=== PATIENT | male | born 1975 | race Caucasian/White ===

== ENCOUNTER 2017-03-25 01:15 | Emergency (ER) | payer OTHER ==
--- NOTE | 2017-03-25 02:21 | ED NURSING NOTES ---
Clinical Report - Nurses [facility] [address] [place] [address] 03/25/2017 1:16 [id number] Triage time 01:Mar 25 2017. Acuity: LEVEL 3. Chief Complaint: INJURY TO LEFT ANKLE. INJURY TO THE LEFT LEG. 01:26 03/25/17. SEPSIS SCREEN: Sepsis Screen. Negative (no infection suspected/documented). --01: Kaylan Gonzalez R.N. 01:19 03/25/17. BP: 164/100 (regular adult cuff) taken on the left arm, while sitting. HR: 102. RR: 22. O2 saturation: 98% on room air. Temp: 97.8 F (oral). Pain level now: 0/10. --01:26 Kaylan Gonzalez R.N. MARYBETH COMA SCORE: Grundy Coma Scale: 15- eyes open spontaneously (4); best verbal response- oriented x 4 (5); best motor response- obeys commands (6). --01:26 Kaylan Gonzalez R.N. Weight: 97.5 kg stated. Height/Length: 71 inches Per Patient. BMI: 30. --01:25 Kaylan Gonzalez R.N. Medications None. --01:22 Kaylan Gonzalez R.N. Testosterone Cypionate Intramuscular (Solution 100 mg/mL), weekly. --01:26 Kaylan Gonzalez R.N. Allergies Sodium Penathol. --01:22 Kaylan Gonzalez R.N. History Historian: patient. This occurred (one ago at work). Occurred at work. Mechanism of injury: (stepped on rebar at work week ago, since then has gotten worse). He has had trouble walking. Treatment FOOT CASTER: (clean with alcohol, neosporin). PAST MEDICAL HX: Tetanus status: unknown. SOCIAL HX: Current every day heavy tobacco smoker (cigarette)- less than 1 pack per day. History of weekly drug use: methamphetamines. Recently used drugs days ago. (7). No alcohol use. No infectious disease exposure. ABUSE ASSESSMENT: No report of abuse. SELF HARM ASSESSMENT: A self harm assessment was performed. The patient answered "no" to the question "Do you have thoughts of harming or killing yourself?" and "Have you recently had thoughts about harming or killing others?". --01:26 Kaylan Gonzalez R.N. Occurred (Patient corrected prior triage information where this happened at work and corrected it stating he stepped on rebar at home). --02:15 Kaylan Gonzalez R.N. PROBLEMS: Liver issues. Hepatitis C carrier. Viral Disease. URI. Corneal Abrasion. Eye Injury. --01:23 Kaylan Gonzalez R.N. ADDITIONAL SURGERIES: no known surgeries. Interventions ID band on patient. To treatment room. --01:26 Kaylan Gonzalez R.N. PHYSICAL ASSESSMENT 01:30 03/25/17. Ambulatory to room. Patient gowned. GENERAL / NEURO / PSYCH: Oriented X 4. Alert. Appears in no acute distress. EXTREMITIES: Capillary refill is less than 2 seconds in the extremities. Extremity pulses are within normal limits. Extremities exhibit normal ROM. Pain with weight bearing. Limping gait. Neuro-vascular status intact to the extremity. Normal gait. Left leg: tenderness, swelling, erythema, large abrasion, subcutaneous laceration and multiple puncture wounds (superior wound on lower castle 3cm x 4cm wound with perulent dressing, inferior wound 2cm x 1 cm). SKIN: Skin is warm and dry. He has an abrasion. --01:30 Kaylan Gonzalez R.N. NURSING PROGRESS NOTES late entry - 01:20 03/25/17. ( Xray finished). --01:55 Kaylan Gonzalez R.N. 01:30 03/25/17. The plan of care for this patient has been created. Extremity elevated. Patient gowned. Reassurance given. Two patient identifiers checked. Call light placed in reach. Side rails up x 1. Bed placed in lowest position. Brakes of bed on. Patient ready for evaluation- chart flagged and ED physician notified. --01:30 Kaylan Gonzalez R.N. 01:33 03/25/2017 Site #1 started via IV in the left forearm with an 20g angiocath, with aseptic technique and good blood return; one attempt. Blood drawn: rainbow set. Labeled in the presence of the patient and sent to the lab. Saline lock flushed with 10 mL saline. --01:48 Kaylan Gonzalez R.N. 01:49 03/25/2017 Started bag #1 1000 mL IV Fluids IV NS (Saline); bolus of 500 mL over 30 minute(s) then at 1000 mL/hr over 30 minute(s) via site #1 via IV pump. Allergies verified and confirmed 5 rights. IV patency established. IV site checked: no pain, redness, or swelling. IV flushed thoroughly pre- and post-medication administration. --01:49 Kaylan Gonzalez R.N. 01:49 03/25/2017 Bactrim DS (Sulfamethoxazole-TMP DS) PO Tablets 2 tab given. Allergies verified and confirmed 5 rights. --01:54 Kaylan Gonzalez R.N. 01:55 03/25/2017 Started 1 gm of Ancef (CeFAZolin Sodium) IVPB in bag #1 50 mL; at 120 mL/hr over 20 minute(s) via site #1 via IV pump. Allergies verified and confirmed 5 rights. IV patency established. IV site checked: no pain, redness, or swelling. IV flushed thoroughly pre- and post-medication administration. --01:55 Kaylan Gonzalez R.N. ( at bedside, patient accepted warm blanket). --01:56 Kaylan Gonzalez R.N. 02:13 03/25/2017 Ancef IVPB Bag Change: bag #1 completed. Total amount infused: 50. STARTED bag #2 (50 mL) at 120 mL/hr via IV pump. Confirmed 5 rights. IV patency established. IV site checked: no pain, redness, or swelling. IV flushed thoroughly. --02:13 Kaylan Gonzalez R.N. 02:48 03/25/2017 Ancef IVPB Discontinued: bag #2 completed upon discharge. Total amount infused: 100 mL. IV patency established. IV site checked: no pain, redness, or swelling. IV flushed thoroughly. --02:48 Kaylan Gonzalez R.N. 03:00 03/25/2017 IV Fluids IV NS Discontinued: bag #1 discontinued upon discharge. Total amount infused: 400 mL. IV patency established. IV site checked: no pain, redness, or swelling. IV flushed thoroughly. --03:00 Kaylan Gonzalez R.N. DISPOSITION / DISCHARGE 02:58 03/25/2017 Site #1 removed upon discharge. Bandaid applied. --02:58 Kaylan Gonzalez R.N. 03:00 03/25/17. No learning barriers present. Discharge instructions provided and reviewed with the patient. Reviewed medication(s) side effects, precautions, dosing and course information. Prescription(s) given to the patient. Reviewed need to stop smoking. Work note given. Patient verbalized understanding. Written instructions provided in [place]. The patient was discharged by the physician. He was discharged home and accompanied by spouse. He left the Emergency Department ambulatory and via private vehicle. Spouse driving. --03:00 Kaylan Gonzalez R.N. 02:58 03/25/17. BP: 143/86 (large adult cuff) taken on the right arm, while sitting. HR: 80. RR: 18. O2 saturation: 100% on room air. Temp: 98.9 F (oral). Pain level now: 0/10. --03:00 Kaylan Gonzalez R.N. Departure time: 03:02 Mar 25 2017. --03:02 Kaylan Gonzalez R.N. Locked/Released at 03/25/2017 5:52 by Kaylan Gonzalez R.N.
--- NOTE | 2017-03-25 02:21 | ED ORDER SUMMARY ---
..... Patient: LINA PERRY OrderSheet [facility] VisitID: [id number] [place] [address] 41y, M Registration Date/Time: 03/25/2017 ORDER SHEET Weight: 97.5 kg (stated) Allergies: Sodium Penathol GENERAL ORDERS: Tibia/Fibula Left Urgent (01:03/25/2017 PHutchinson DO) (Ack 1:40 RKaruga) (1:55 JSanders R.N.) Blood Culture (No) (N/A) Urgent (03/25/2017 PHutchinson DO) (1:37 PHutchinson DO) (Cancelled: Other1:37 PHutchinson DO) CBC w Diff Urgent (03/25/2017 PHutchinson DO) (1:39 JSanders R.N.) (Ack 1:40 RKaruga) CMP Urgent (03/25/2017 PHutchinson DO) (1:39 JSanders R.N.) (Ack 1:40 RKaruga) UA-Culture if indicated Urgent (03/25/2017 PHutchinson DO) (Ack 1:40 RKaruga) (Cancelled: Other2:46 JSanders R.N.) PT with INR Urgent (03/25/2017 PHutchinson DO) (1:39 JSanders R.N.) (Ack 1:40 RKaruga) ESR Urgent (03/25/2017 PHutchinson DO) (1:39 JSanders R.N.) (Ack 1:40 RKaruga) CRP Urgent (:03/25/2017 PHutchinson DO) (1:39 JSanders R.N.) (Ack 1:40 RKaruga) Urine Drug Screen Urgent (03/25/2017 PHutchinson DO) (Ack 1:40 RKaruga) (Cancelled: Other2:46 JSanders R.N.) Dress Wounds (bacitracin and bandage) (02:15 03/25/2017 PHutchinson DO) (2:46 JSanders R.N.) MEDICATION ORDERS: Bactrim DS PO (Tablet 800-160 mg) 2 tabs (NOW) (01:37 03/25/2017 [facility]) (Ack 1:39 JSanders R.N.) (1:54 JSanders R.N.) IV FLUIDS: IV NS : initial bolus 500 mL (1000 mL/hr), then 500 mL/hr for X2 (NOW) (01:27 03/25/2017 [facility]) (Ack 1:30 JSanders R.N.) (1:49 JSanders R.N.) Vancomycin IV 2 gm/500 mL (NOW) (01:28 03/25/2017 [facility]) (Ack 1:30 JSanders R.N.) (Cancelled: Other1:37 [facility]) Ancef IV 2 gm/100mL (NOW) (01:37 03/25/2017 [facility]) (Ack 1:39 JSanders R.N.) (1:55 JSanders R.N.) ORDER SHEET NOTES: [Electronically signed by Kaylan Gonzalez R.N. (05:52 03/25/2017)] [Electronically signed by Ezra Wolfe DO (08:40 03/26/2017)] [Electronically locked/signed by Kaylan Gonzalez R.N. (05:52 03/25/2017)]
--- NOTE | 2017-03-25 02:21 | ED CLINICAL REPORT ---
Clinical Report - Physicians/Mid Levels [facility] [address] [place] [address] 03/25/2017 1:16 Patient: LINA PERRY Time Seen: 01:25. Arrived- By private vehicle. Historian- patient. HISTORY OF PRESENT ILLNESS Chief Complaint: TENDER AREA. This started about 1 week ago and is still present. It was gradual in onset and has been waxing/waning. It is described as painful. It has been located on the left lower extremity. A cause has been identified (stepped on rebar at work week ago, since then has gotten worse). Similar symptoms previously: None. Recent medical care: Not recently seen/assessed. REVIEW OF SYSTEMS The patient has had fever. No chills, sore throat, cough, difficulty breathing or headache. No chest pain, abdominal pain, nausea, diarrhea or difficulty with urination. No joint pain or vomiting. All systems otherwise negative, except as recorded above. PAST HISTORY PROBLEMS: Liver issues. Hepatitis C carrier. Viral Disease. URI. Corneal Abrasion. Eye Injury SURGERIES: no known surgeries. SOCIAL HISTORY Smoker- current status unknown. History of occasional drug use last use 7 days ago: methamphetamines. No alcohol use. ADDITIONAL NOTES The nursing notes have been reviewed. PHYSICAL EXAM Vital Signs: 03/25/2017 01:19 BP: 164/100. HR: 102. RR: 22. O2 saturation: 98%. Temp: 97.8 F. Pain level now: 0/10. Appearance: Alert. Oriented X3. Anxious. Patient in mild distress. Eyes: Conjunctivae and eyelids normal. ENT: Nose normal. Pharynx normal. Neck: Neck supple. CVS: Normal heart rate and rhythm. Heart sounds normal. No cardiac murmur. Respiratory: No respiratory distress. Breath sounds normal. Abdomen: Nontender. No organomegaly. Skin: Single medium tender indurated area with cellulitis to left leg. No fluctuance, pointing or drainage. Extremities: (left anterior leg abrasion with cellultis). Neuro: Oriented X 3. No motor deficit. No sensory deficit. LABS, X-RAYS, AND EKG Lt Tib/Fib X-ray: No fracture. Normal alignment. No bony lesion, air in the soft tissue or foreign body. Views: AP and lateral. Technique: good. The X-rays were interpreted contemporaneously by me. Laboratory Tests: CBC w Diff: (TONY: 03/25/2017 01:30) ( [facility] 03/25/2017 02:05) Final results Test Result Flag Units (Reference) WHITE BLOOD COUNT 9.1 K/uL (4.5-11.5) RED BLOOD COUNT 4.90 M/uL (4.50-5.90) HEMOGLOBIN 14.7 gm/dL (13.5-17.5) HEMATOCRIT 44.0 % (41.0-53.0) MEAN CELL VOLUME 90 fL (80-100) MEAN CORPUSCULAR HGB 30 pg (26-34) MEAN CORPUSCULAR HGB CONC 33 g/dL (31-37) RED CELL DISTRIBUTION WIDTH 13.0 % (11.6-14.8) PLATELET COUNT 303 K/uL (150-400) NEUTROPHIL % 64.1 % (50-75) LYMPH % 24.2 L % (25-40) MONO % 7.7 % (3-14) EOSINOPHIL % 3.6 % (0-4) BASOPHIL % 0.4 % (0-2) SED RATE WESTERGREN 9 mm/hr (0-15) PT with INR: (TONY: 03/25/2017 01:30) ( [facility] 03/25/2017 01:56) Final results Test Result Flag Units (Reference) INR 0.9 (0.8-1.2) Low Intensity Therapy: INR 1.5-2.0 PT range 18.5-23.1Mod.Intensity Therapy: INR 2.0-3.0 PT range 23.1-31.5High Intensity Therapy: INR 2.5-3.5 PT range 27.4-35.5High Intensity Therapy 2: INR 3.0-4.0 PT range 31.5-39.3 CMP: (TONY: 03/25/2017 01:30) ( [facility] 03/25/2017 01:58) Final results Test Result Flag Units (Reference) GLUCOSE 103 mg/dL (70-110) BUN 17 mg/dL (7-18) CREATININE 1.1 mg/dL (0.6-1.3) Estimated GFR >60 mL/min Estimated GFR- >60 mL/min Note: Persistent reduction over 3 months in eGFR<60 mL/min/1.73 m2 defines CKD. Patients with eGFR values>=60 mL/min/1.73 m2 may also have CKD if evidence ofpersistent proteinuria. Additional information may be foundat www.kidney.org. SODIUM 139 mmol/L (136-145) POTASSIUM 3.9 mmol/L (3.5-5.1) CHLORIDE 102 mmol/L (98-107) CARBON DIOXIDE 29 mmol/L (21-32) CALCIUM 8.3 L mg/dL (8.5-10.1) TOTAL PROTEIN 7.6 g/dL (6.4-8.2) ALBUMIN 3.5 g/dL (3.3-5.0) BILIRUBIN, TOTAL 0.2 mg/dL (0.0-1.0) ALKALINE PHOSPHATASE 55 U/L (46-116) AST (SGOT) 34 U/L (15-37) ALT (SGPT) 63 U/L (12-78) C-REACTIVE PROTEIN < 0.2 mg/dL (0.0-0.9) . Pulse Oximetry: 03/25/2017 01:19 O2 saturation: 98%. (FIO2 - room air). Interpretation: normal. PROGRESS AND PROCEDURES Course of Care: Ancef 2gm IVPB given. Bactrim DS 2 tabs PO. No systemic symptoms. I will give first dose of parenteral antibiotics. Pt will need close out pt follow up and / or return to ED for new or worsening symptoms or any concerns Labs normal and not c/w serious infection or osteomyelitis. Patient/family counseled. Old ED records reviewed. Disposition: Discharged. Condition: stable and improved. CLINICAL IMPRESSION Cellulitis of the left lower leg. Abrasion to the left lower leg. INSTRUCTIONS Do not work for two days. Drink plenty of fluids. Do not smoke. Seek medical help to quit smoking. No alcohol. (Return to ED for new or worsening symptoms or any concerns). Warnings: Further evaluation is necessary in order to conduct further tests. It is very important to follow up with a physician. GENERAL WARNINGS: Return or contact your physician immediately if your condition worsens or changes unexpectedly, if not improving as expected, or if other problems arise. Your Current Medications: CONTINUE TAKING THE FOLLOWING MEDICATIONS: None*. Testosterone Cypionate Intramuscular : Solution 100 mg/mL, weekly. Prescription Medications: Bactrim DS 800 mg / 160 mg: take 2 tablets orally every 12 hours for 10 days. No refill. Substitution is permissible. Keflex 500 mg: take 1 capsule orally for 1 day. No refill. Substitution is permissible. OTC Medications: Acetaminophen (available over the counter): take according to label instructions. Motrin (available over the counter): take according to label instructions. Follow-up: Follow up with your doctor in about two days. Follow-up with: [facility], , , [address] [place] [address], , [place], ; [facility], [facility], , [address] [place] [address] Follow up in about two days. Call for the next available appointment. (Electronically signed by Ezra Wolfe DO 03/26/2017 8:40)
--- NOTE | 2017-03-25 02:21 | ED ORDER SUMMARY ---
..... Patient: LINA PERRY OrderSheet [facility] VisitID: [id number] [place] [address] 41y, M Registration Date/Time: 03/25/2017 ORDER SHEET Weight: 97.5 kg (stated) Allergies: Sodium Penathol GENERAL ORDERS: Tibia/Fibula Left Urgent (01:03/25/2017 PHutchinson DO) (Ack 1:40 RKaruga) (1:55 JSanders R.N.) Blood Culture (No) (N/A) Urgent (03/25/2017 PHutchinson DO) (1:37 PHutchinson DO) (Cancelled: Other1:37 PHutchinson DO) CBC w Diff Urgent (03/25/2017 PHutchinson DO) (1:39 JSanders R.N.) (Ack 1:40 RKaruga) CMP Urgent (03/25/2017 PHutchinson DO) (1:39 JSanders R.N.) (Ack 1:40 RKaruga) UA-Culture if indicated Urgent (03/25/2017 PHutchinson DO) (Ack 1:40 RKaruga) (Cancelled: Other2:46 JSanders R.N.) PT with INR Urgent (03/25/2017 PHutchinson DO) (1:39 JSanders R.N.) (Ack 1:40 RKaruga) ESR Urgent (03/25/2017 PHutchinson DO) (1:39 JSanders R.N.) (Ack 1:40 RKaruga) CRP Urgent (:03/25/2017 PHutchinson DO) (1:39 JSanders R.N.) (Ack 1:40 RKaruga) Urine Drug Screen Urgent (03/25/2017 PHutchinson DO) (Ack 1:40 RKaruga) (Cancelled: Other2:46 JSanders R.N.) Dress Wounds (bacitracin and bandage) (02:15 03/25/2017 PHutchinson DO) (2:46 JSanders R.N.) MEDICATION ORDERS: Bactrim DS PO (Tablet 800-160 mg) 2 tabs (NOW) (01:37 03/25/2017 [facility]) (Ack 1:39 JSanders R.N.) (1:54 JSanders R.N.) IV FLUIDS: IV NS : initial bolus 500 mL (1000 mL/hr), then 500 mL/hr for X2 (NOW) (01:27 03/25/2017 [facility]) (Ack 1:30 JSanders R.N.) (1:49 JSanders R.N.) Vancomycin IV 2 gm/500 mL (NOW) (01:28 03/25/2017 [facility]) (Ack 1:30 JSanders R.N.) (Cancelled: Other1:37 [facility]) Ancef IV 2 gm/100mL (NOW) (01:37 03/25/2017 [facility]) (Ack 1:39 JSanders R.N.) (1:55 JSanders R.N.) ORDER SHEET NOTES: [Electronically signed by Kaylan Gonzalez R.N. (05:52 03/25/2017)] [Electronically signed by Ezra Wolfe DO (08:40 03/26/2017)] [Electronically locked/signed by Kaylan Gonzalez R.N. (05:52 03/25/2017)]
--- NOTE | 2017-03-25 02:21 | ED CLINICAL REPORT ---
Clinical Report - Physicians/Mid Levels Loc[facility] [address] [place] [address] 03/25/2017 1:16 Patient: LINA PERRY Time Seen: 01:25. Arrived- By private vehicle. Historian- patient. HISTORY OF PRESENT ILLNESS Chief Complaint: TENDER AREA. This started about 1 week ago and is still present. It was gradual in onset and has been waxing/waning. It is described as painful. It has been located on the left lower extremity. A cause has been identified (stepped on rebar at work week ago, since then has gotten worse). Similar symptoms previously: None. Recent medical care: Not recently seen/assessed. REVIEW OF SYSTEMS The patient has had fever. No chills, sore throat, cough, difficulty breathing or headache. No chest pain, abdominal pain, nausea, diarrhea or difficulty with urination. No joint pain or vomiting. All systems otherwise negative, except as recorded above. PAST HISTORY PROBLEMS: Liver issues. Hepatitis C carrier. Viral Disease. URI. Corneal Abrasion. Eye Injury SURGERIES: no known surgeries. SOCIAL HISTORY Smoker- current status unknown. History of occasional drug use last use 7 days ago: methamphetamines. No alcohol use. ADDITIONAL NOTES The nursing notes have been reviewed. PHYSICAL EXAM Vital Signs: 03/25/2017 01:19 BP: 164/100. HR: 102. RR: 22. O2 saturation: 98%. Temp: 97.8 F. Pain level now: 0/10. Appearance: Alert. Oriented X3. Anxious. Patient in mild distress. Eyes: Conjunctivae and eyelids normal. ENT: Nose normal. Pharynx normal. Neck: Neck supple. CVS: Normal heart rate and rhythm. Heart sounds normal. No cardiac murmur. Respiratory: No respiratory distress. Breath sounds normal. Abdomen: Nontender. No organomegaly. Skin: Single medium tender indurated area with cellulitis to left leg. No fluctuance, pointing or drainage. Extremities: (left anterior leg abrasion with cellultis). Neuro: Oriented X 3. No motor deficit. No sensory deficit. LABS, X-RAYS, AND EKG Lt Tib/Fib X-ray: No fracture. Normal alignment. No bony lesion, air in the soft tissue or foreign body. Views: AP and lateral. Technique: good. The X-rays were interpreted contemporaneously by me. Laboratory Tests: CBC w Diff: (TONY: 03/25/2017 01:30) ( [facility] 03/25/2017 02:05) Final results Test Result Flag Units (Reference) WHITE BLOOD COUNT 9.1 K/uL (4.5-11.5) RED BLOOD COUNT 4.90 M/uL (4.50-5.90) HEMOGLOBIN 14.7 gm/dL (13.5-17.5) HEMATOCRIT 44.0 % (41.0-53.0) MEAN CELL VOLUME 90 fL (80-100) MEAN CORPUSCULAR HGB 30 pg (26-34) MEAN CORPUSCULAR HGB CONC 33 g/dL (31-37) RED CELL DISTRIBUTION WIDTH 13.0 % (11.6-14.8) PLATELET COUNT 303 K/uL (150-400) NEUTROPHIL % 64.1 % (50-75) LYMPH % 24.2 L % (25-40) MONO % 7.7 % (3-14) EOSINOPHIL % 3.6 % (0-4) BASOPHIL % 0.4 % (0-2) SED RATE WESTERGREN 9 mm/hr (0-15) PT with INR: (TONY: 03/25/2017 01:30) ( [facility] 03/25/2017 01:56) Final results Test Result Flag Units (Reference) INR 0.9 (0.8-1.2) Low Intensity Therapy: INR 1.5-2.0 PT range 18.5-23.1Mod.Intensity Therapy: INR 2.0-3.0 PT range 23.1-31.5High Intensity Therapy: INR 2.5-3.5 PT range 27.4-35.5High Intensity Therapy 2: INR 3.0-4.0 PT range 31.5-39.3 CMP: (TONY: 03/25/2017 01:30) ( [facility] 03/25/2017 01:58) Final results Test Result Flag Units (Reference) GLUCOSE 103 mg/dL (70-110) BUN 17 mg/dL (7-18) CREATININE 1.1 mg/dL (0.6-1.3) Estimated GFR >60 mL/min Estimated GFR- >60 mL/min Note: Persistent reduction over 3 months in eGFR<60 mL/min/1.73 m2 defines CKD. Patients with eGFR values>=60 mL/min/1.73 m2 may also have CKD if evidence ofpersistent proteinuria. Additional information may be foundat www.kidney.org. SODIUM 139 mmol/L (136-145) POTASSIUM 3.9 mmol/L (3.5-5.1) CHLORIDE 102 mmol/L (98-107) CARBON DIOXIDE 29 mmol/L (21-32) CALCIUM 8.3 L mg/dL (8.5-10.1) TOTAL PROTEIN 7.6 g/dL (6.4-8.2) ALBUMIN 3.5 g/dL (3.3-5.0) BILIRUBIN, TOTAL 0.2 mg/dL (0.0-1.0) ALKALINE PHOSPHATASE 55 U/L (46-116) AST (SGOT) 34 U/L (15-37) ALT (SGPT) 63 U/L (12-78) C-REACTIVE PROTEIN < 0.2 mg/dL (0.0-0.9) . Pulse Oximetry: 03/25/2017 01:19 O2 saturation: 98%. (FIO2 - room air). Interpretation: normal. PROGRESS AND PROCEDURES Course of Care: Ancef 2gm IVPB given. Bactrim DS 2 tabs PO. No systemic symptoms. I will give first dose of parenteral antibiotics. Pt will need close out pt follow up and / or return to ED for new or worsening symptoms or any concerns Labs normal and not c/w serious infection or osteomyelitis. Patient/family counseled. Old ED records reviewed. Disposition: Discharged. Condition: stable and improved. CLINICAL IMPRESSION Cellulitis of the left lower leg. Abrasion to the left lower leg. INSTRUCTIONS Do not work for two days. Drink plenty of fluids. Do not smoke. Seek medical help to quit smoking. No alcohol. (Return to ED for new or worsening symptoms or any concerns). Warnings: Further evaluation is necessary in order to conduct further tests. It is very important to follow up with a physician. GENERAL WARNINGS: Return or contact your physician immediately if your condition worsens or changes unexpectedly, if not improving as expected, or if other problems arise. Your Current Medications: CONTINUE TAKING THE FOLLOWING MEDICATIONS: None*. Testosterone Cypionate Intramuscular : Solution 100 mg/mL, weekly. Prescription Medications: Bactrim DS 800 mg / 160 mg: take 2 tablets orally every 12 hours for 10 days. No refill. Substitution is permissible. Keflex 500 mg: take 1 capsule orally for 1 day. No refill. Substitution is permissible. OTC Medications: Acetaminophen (available over the counter): take according to label instructions. Motrin (available over the counter): take according to label instructions. Follow-up: Follow up with your doctor in about two days. Follow-up with: [facility], , , [address] [place] [address], , [place], ; [facility], [facility], , [address] [place] [address] Follow up in about two days. Call for the next available appointment. (Electronically signed by Ezra Wolfe DO 03/26/2017 8:40)
--- NOTE | 2017-03-25 06:43 | DIAGNOSTIC IMAGING REPORT ---
PROCEDURE: XR TIBIA AND FIBULA - LEFT INDICATION: TRAUMA/INJURY TECHNIQUE: AP and lateral views. COMPARISON: None. FINDINGS: Chronic fragmentation of the anterior tibial tubercle which may represent Hornick-Schlatter disease. Otherwise, bones joint spaces and soft tissues are normal. IMPRESSION: 1. No acute changes 2. Possible Hornick-Schlatter disease. Correlate clinically.
--- NOTE | 2017-03-25 06:43 | DIAGNOSTIC IMAGING REPORT ---
PROCEDURE: XR TIBIA AND FIBULA - LEFT INDICATION: TRAUMA/INJURY TECHNIQUE: AP and lateral views. COMPARISON: None. FINDINGS: Chronic fragmentation of the anterior tibial tubercle which may represent [place]-Schlatter disease. Otherwise, bones joint spaces and soft tissues are normal. IMPRESSION: 1. No acute changes 2. Possible [place]-Schlatter disease. Correlate clinically.
--- NOTE | 2017-03-26 08:40 | ED DISCHARGE INSTRUCTIONS ---
Patient: LINA PERRY General Instructions [facility] VisitID: [id number] [place] [address] 41y, M Registration Date/Time: 03/25/2017 Cellulitis of the left lower leg. Abrasion to the left lower leg. INSTRUCTIONS Do not work for two days. Drink plenty of fluids. Do not smoke. Seek medical help to quit smoking. No alcohol. (Return to ED for new or worsening symptoms or any concerns). Warnings: Further evaluation is necessary in order to conduct further tests. It is very important to follow up with a physician. GENERAL WARNINGS: Return or contact your physician immediately if your condition worsens or changes unexpectedly, if not improving as expected, or if other problems arise. Your Current Medications: CONTINUE TAKING THE FOLLOWING MEDICATIONS: None*. Testosterone Cypionate Intramuscular : Solution 100 mg/mL, weekly. Prescription Medications: Bactrim DS 800 mg / 160 mg: take 2 tablets orally every 12 hours for 10 days. No refill. Substitution is permissible. Keflex 500 mg: take 1 capsule orally for 1 day. No refill. Substitution is permissible. OTC Medications: Acetaminophen (available over the counter): take according to label instructions. Motrin (available over the counter): take according to label instructions. Follow-up: Follow up with your doctor in about two days. Follow-up with: [facility], , , [address] [place] [address], ; [facility], [facility], , [address] [place] [address] Follow up in about two days. Call for the next available appointment. ADDITIONAL INFORMATION Cellulitis You have an infection of the skin known as cellulitis. This usually starts with a scrape, cut, insect bite, blister or other opening in the skin which becomes infected. This is a serious condition. It must be watched closely to be sure the infection is not spreading. With antibiotic treatment, the size of the red area will gradually shrink in size until the skin returns to normal. This will take 7-10 days. The red area should never increase in size once the antibiotic medicine has been started. Occasionally, an infection will be resistant to one antibiotic and another one will have to be used. Home Care: 1) Limit the use of the affected part, since excess movement can cause the infection to spread. 2) If the infection is on your leg, walk as little as possible during the first few days of the treatment. Keep your leg elevated while sitting. This will reduce swelling. 3) Take all of the antibiotic medicine exactly as directed until it is gone. Be careful not to miss any doses, especially during the first seven days. Follow Up with your doctor or this facility as directed. Check the infected area daily for the warning signs listed below. Get Prompt Medical Attention if any of the following occur: -- Spreading area of redness -- Increasing swelling or pain -- Appearance of pus or drainage -- Fever over 100.4 F (38.0 C) oral, or over 101.4 F (38.6 C) rectal, after two days on antibiotics Abrasions Abrasions are skin scrapes. Their treatment depends on how large and deep the abrasion is. Home Care: If you were given a bandage, change it once a day. If your bandage sticks to the wound, soak it in warm water until it loosens. Wash the area with soap and water to remove all the cream/ointment. You may do this in a sink, under a tub faucet or shower. Rinse off the soap and pat dry with a clean towel. Reapply cream/ointment according to your doctor's instructions. This will prevent infection and help prevent the bandage from sticking. Cover the wound with a fresh non-stick bandage (Telfa). Repeat steps 1 to 4 daily, or as directed by your doctor. If the bandage becomes wet or dirty, change it as soon as possible. You may use acetaminophen (Tylenol) or ibuprofen (Motrin, Advil) to control pain, unless another pain medicine was prescribed. [ NOTE : If you have chronic liver or kidney disease or ever had a stomach ulcer or GI bleeding, talk with your doctor before using these medicines.] Do not use ibuprofen in children under six months of age. Follow Up with your physician or this facility as directed by our staff. Most skin wounds heal within ten days. However, an infection may occur despite proper treatment. Therefore, look for the early signs of infection listed below. Get Prompt Medical Attention if any of the following occur: Increasing pain in the wound Increasing redness or swelling Pus coming from the wound Fever of 100.4F (38C) or higher, or as directed by your healthcare provider How To Quit Smoking Smoking is one of the hardest habits to break. About half of all those who have ever smoked have been able to quit, and most of those (about 70%) who still smoke want to quit. Here are some of the best ways to stop smoking. Keep Trying: It takes most smokers about 8 tries before they are finally able to fully quit. So, the more often you try and fail, the better your chance of quitting the next time! So, don't give up! Go Cold Harvey: Most ex-smokers quit cold turkey. Trying to cut back gradually doesn't seem to work as well, perhaps because it continues the smoking habit. Also, it is possible to fool yourself by inhaling more while smoking fewer cigarettes. This results in the same amount of nicotine in your body! Get Support: Support programs can make an important difference, especially for the heavy smoker. These groups offer lectures, methods to change your behavior and peer support. Call the free national Quitline for more information. 222-UOPJ-DXY (379-819-1263). Low-cost or free programs are offered by many hospitals, local chapters of the [place] [employer] (342-809-1327) and the [place] [employer] (575-673-3579). Support at home is important too. Non-smokers can help by offering praise and encouragement. If the smoker fails to quit, encourage them to try again! Ijtn-Mxj-Weqqqon Medicines: For those who can't quit on their own, Nicotine Replacement Therapy (NRT) may make quitting much easier. Certain aids such as the nicotine patch, gum and lozenge are available without a prescription. However, it is best to use these under the guidance of your doctor. The skin patch provides a steady supply of nicotine to the body. Nicotine gum and lozenge gives temporary bursts of low levels of nicotine. Both methods take the edge off the craving for cigarettes. WARNING: If you feel symptoms of nicotine overdose, such as nausea, vomiting, dizziness, weakness, or fast heartbeat, stop using these and see your doctor. Prescription Medicines: After evaluating your smoking patterns and prior attempts at quitting, your doctor may offer a prescription medicine such as bupropion (Zyban, Wellbutrin), varenicline (Chantix, Champix), a niocotine inhaler or nasal spray. Each has its unique advantage and side effects which your doctor can review with you. Health Benefits Of Quitting: The benefits of quitting start right away and keep improving the longer you go without smokin minutes: blood pressure and pulse return to normal 8 hours: oxygen levels return to normal 2 days: ability to smell and taste begins to improve as damaged nerves start to regrow 2-3 weeks: circulation and lung function improves 1-9 months: decreased cough, congestion and shortness of breath; less tired 1 year: risk of heart attack decreases by half 5 years: risk of lung cancer decreases by half; risk of stroke becomes the same as a non-smoker For information about how to quit smoking, visit the following links: National Cancer [place] , Clearing the Air, Quit Smoking Today - an online booklet. http://www.smokefree.gov/pubs/clearing_the_air.pdf Smokefree.gov http://smokefree.gov/ QuitNet http://www.quitnet.com/ Sulfamethoxazole, Trimethoprim Oral tablet What is this medicine? SULFAMETHOXAZOLE; TRIMETHOPRIM or SMX-TMP (suhl fuh meth OK steffanie zohl; trye METH oh prim) is a combination of a sulfonamide antibiotic and a second antibiotic, trimethoprim. It is used to treat or prevent certain kinds of bacterial infections. It will not work for colds, flu, or other viral infections. How should I use this medicine? Take this medicine by mouth with a full glass of water. Follow the directions on the prescription label. Take your medicine at regular intervals. Do not take it more often than directed. Do not skip doses or stop your medicine early. Talk to your developmental training counselor regarding the use of this medicine in children. Special care may be needed. This medicine has been used in children as young as 2 months of age. What side effects may I notice from receiving this medicine? Side effects that you should report to your doctor or health child day care center worker as soon as possible: allergic reactions like skin rash or hives, swelling of the face, lips, or tongue breathing problems fever or chills, sore throat irregular heartbeat, chest pain joint or muscle pain pain or difficulty passing urine red pinpoint spots on skin redness, blistering, peeling or loosening of the skin, including inside the mouth unusual bleeding or bruising unusually weak or tired yellowing of the eyes or skin Side effects that usually do not require medical attention (report to your doctor or health child day care center worker if they continue or are bothersome): diarrhea dizziness headache loss of appetite nausea, vomiting nervousness What may interact with this medicine? Do not take this medicine with any of the following medications: aminobenzoate potassium dofetilide metronidazole This medicine may also interact with the following medications: FLAVIO inhibitors like benazepril, enalapril, lisinopril, and ramipril cyclosporine digoxin diuretics indomethacin medicines for diabetes methenamine methotrexate phenytoin potassium supplements pyrimethamine sulfinpyrazone tricyclic antidepressants warfarin What if I miss a dose? If you miss a dose, take it as soon as you can. If it is almost time for your next dose, take only that dose. Do not take double or extra doses. Where should I keep my medicine? Keep out of the reach of children. Store at room temperature between 20 to 25 degrees C (68 to 77 degrees F). Protect from light. Throw away any unused medicine after the expiration date. What should I tell my health care provider before I take this medicine? They need to know if you have any of these conditions: anemia asthma being treated with anticonvulsants if you frequently drink alcohol containing drinks kidney disease liver disease low level of folic acid or [id number] dehydrogenase poor nutrition or malabsorption porphyria severe allergies thyroid disorder an unusual or allergic reaction to sulfamethoxazole, trimethoprim, sulfa drugs, other medicines, foods, dyes, or preservatives or trying to get breast-feeding What should I watch for while using this medicine? Tell your doctor or health child day care center worker if your symptoms do not improve. Drink several glasses of water a day to reduce the risk of kidney problems. Do not treat diarrhea with over the counter products. Contact your doctor if you have diarrhea that lasts more than 2 days or if it is severe and watery. This medicine can make you more sensitive to the sun. Keep out of the sun. If you cannot avoid being in the sun, wear protective clothing and use a sunscreen. Do not use sun lamps or tanning beds/booths. Cephalexin Monohydrate Oral tablet What is this medicine? CEPHALEXIN (sef a SHRAVAN in) is a cephalosporin antibiotic. It is used to treat certain kinds of bacterial infections It will not work for colds, flu, or other viral infections. How should I use this medicine? Take this medicine by mouth with a full glass of water. Follow the directions on the prescription label. This medicine can be taken with or without food. Take your medicine at regular intervals. Do not take your medicine more often than directed. Take all of your medicine as directed even if you think you are better. Do not skip doses or stop your medicine early. Talk to your developmental training counselor regarding the use of this medicine in children. While this drug may be prescribed for selected conditions, precautions do apply. What side effects may I notice from receiving this medicine? Side effects that you should report to your doctor or health child day care center worker as soon as possible: allergic reactions like skin rash, itching or hives, swelling of the face, lips, or tongue breathing problems pain or trouble passing urine redness, blistering, peeling or loosening of the skin, including inside the mouth severe or watery diarrhea unusually weak or tired yellowing of the eyes, skin Side effects that usually do not require medical attention (report to your doctor or health child day care center worker if they continue or are bothersome): gas or heartburn genital or anal irritation headache joint or muscle pain nausea, vomiting What may interact with this medicine? probenecid some other antibiotics What if I miss a dose? If you miss a dose, take it as soon as you can. If it is almost time for your next dose, take only that dose. Do not take double or extra doses. There should be at least 4 to 6 hours between doses. Where should I keep my medicine? Keep out of the reach of children. Store at room temperature between 59 and 86 degrees F (15 and 30 degrees C). Throw away any unused medicine after the expiration date. What should I tell my health care provider before I take this medicine? They need to know if you have any of these conditions: kidney disease stomach or intestine problems, especially colitis an unusual or allergic reaction to cephalexin, other cephalosporins, penicillins, other antibiotics, medicines, foods, dyes or preservatives or trying to get breast-feeding What should I watch for while using this medicine? Tell your doctor or health child day care center worker if your symptoms do not begin to improve in a few days. Do not treat diarrhea with over the counter products. Contact your doctor if you have diarrhea that lasts more than 2 days or if it is severe and watery. If you have diabetes, you may get a false-positive result for sugar in your urine. Check with your doctor or health child day care center worker. Acetaminophen Oral tablet What is this medicine? ACETAMINOPHEN (a set a PASHA daniel fen) is a pain reliever. It is used to treat mild pain and fever. How should I use this medicine? Take this medicine by mouth with a glass of water. Follow the directions on the package or prescription label. Take your medicine at regular intervals. Do not take your medicine more often than directed. Talk to your developmental training counselor regarding the use of this medicine in children. While this drug may be prescribed for children as young as 6 years of age for selected conditions, precautions do apply. What side effects may I notice from receiving this medicine? Side effects that you should report to your doctor or health child day care center worker as soon as possible: allergic reactions like skin rash, itching or hives, swelling of the face, lips, or tongue breathing problems fever or sore throat redness, blistering, peeling or loosening of the skin, including inside the mouth trouble passing urine or change in the amount of urine unusual bleeding or bruising unusually weak or tired yellowing of the eyes or skin Side effects that usually do not require medical attention (report to your doctor or health child day care center worker if they continue or are bothersome): headache nausea, stomach upset What may interact with this medicine? alcohol imatinib isoniazid other medicines with acetaminophen What if I miss a dose? If you miss a dose, take it as soon as you can. If it is almost time for your next dose, take only that dose. Do not take double or extra doses. Where should I keep my medicine? Keep out of reach of children. Store at room temperature between 20 and 25 degrees C (68 and 77 degrees F). Protect from moisture and heat. Throw away any unused medicine after the expiration date. What should I tell my health care provider before I take this medicine? They need to know if you have any of these conditions: if you frequently drink alcohol containing drinks liver disease an unusual or allergic reaction to acetaminophen, other medicines, foods, dyes or preservatives or trying to get breast-feeding What should I watch for while using this medicine? Tell your doctor or health child day care center worker if the pain lasts more than 10 days (5 days for children), if it gets worse, or if there is a new or different kind of pain. Also, check with your doctor if a fever lasts for more than 3 days. Do not take other medicines that contain acetaminophen with this medicine. Always read labels carefully. If you have questions, ask your doctor or pharmacist. If you take too much acetaminophen get medical help right away. Too much acetaminophen can be very dangerous and cause liver damage. Even if you do not have symptoms, it is important to get help right away. Ibuprofen Oral tablet What is this medicine? IBUPROFEN (eye BYOO proe fen) is a non-steroidal anti-inflammatory drug (NSAID). It is used for dental pain, fever, headaches or migraines, osteoarthritis, rheumatoid arthritis, or painful monthly periods. It can also relieve minor aches and pains caused by a cold, flu, or sore throat. How should I use this medicine? Take this medicine by mouth with a glass of water. Follow the directions on the prescription label. Take this medicine with food if your stomach gets upset. Try to not lie down for at least 10 minutes after you take the medicine. Take your medicine at regular intervals. Do not take your medicine more often than directed. A special MedGuide will be given to you by the pharmacist with each prescription and refill. Be sure to read this information carefully each time. Talk to your developmental training counselor regarding the use of this medicine in children. Special care may be needed. What side effects may I notice from receiving this medicine? Side effects that you should report to your doctor or health child day care center worker as soon as possible: allergic reactions like skin rash, itching or hives, swelling of the face, lips, or tongue black or bloody stools, blood in the urine or in vomit breathing problems changes in vision chest pain general ill feeling or flu-like symptoms nausea or vomiting redness, blistering, peeling or loosening of the skin, including inside the mouth slurred speech or weakness on one side of the body stomach pain unexplained weight gain or swelling unusually weak or tired yellowing of eyes or skin Side effects that usually do not require medical attention (report to your doctor or health child day care center worker if they continue or are bothersome): constipation or diarrhea dizziness gas or heartburn stomach upset What may interact with this medicine? Do not take this medicine with any of the following medications: cidofovir ketorolac methotrexate pemetrexed This medicine may also interact with the following medications: alcohol aspirin diuretics lithium other drugs for inflammation like prednisone warfarin What if I miss a dose? If you miss a dose, take it as soon as you can. If it is almost time for your next dose, take only that dose. Do not take double or extra doses. Where should I keep my medicine? Keep out of the reach of children. Store at room temperature between 15 and 30 degrees C (59 and 86 degrees F). Keep container tightly closed. Throw away any unused medicine after the expiration date. What should I tell my health care provider before I take this medicine? They need to know if you have any of these conditions: asthma cigarette smoker drink more than 3 alcohol containing drinks a day heart disease or circulation problems such as heart failure or leg edema (fluid retention) high blood pressure kidney disease liver disease stomach bleeding or ulcers an unusual or allergic reaction to ibuprofen, aspirin, other NSAIDS, other medicines, foods, dyes, or preservatives or trying to get breast-feeding What should I watch for while using this medicine? Tell your doctor or healthcare professional if your symptoms do not start to get better or if they get worse. This medicine does not prevent heart attack or stroke. In fact, this medicine may increase the chance of a heart attack or stroke. The chance may increase with longer use of this medicine and in people who have heart disease. If you take aspirin to prevent heart attack or stroke, talk with your doctor or health child day care center worker. Do not take other medicines that contain aspirin, ibuprofen, or naproxen with this medicine. Side effects such as stomach upset, nausea, or ulcers may be more likely to occur. Many medicines available without a prescription should not be taken with this medicine. This medicine can cause ulcers and bleeding in the stomach and intestines at any time during treatment. Ulcers and bleeding can happen without warning symptoms and can cause . To reduce your risk, do not smoke cigarettes or drink alcohol while you are taking this medicine. You may get drowsy or dizzy. Do not drive, use machinery, or do anything that needs mental alertness until you know how this medicine affects you. Do not stand or sit up quickly, especially if you are an older patient. This reduces the risk of dizzy or fainting spells. This medicine can cause you to bleed more easily. Try to avoid damage to your teeth and gums when you brush or floss your teeth. You have been given the following additional information: Cellulitis Abrasion Smoking Cessation Sulfamethoxazole, Trimethoprim Oral tablet Cephalexin Monohydrate Oral tablet Acetaminophen Oral tablet Ibuprofen Oral tablet Do not work for two days. (Electronically signed by Ezra Wolfe DO 03/26/2017 8:40)
--- NOTE | 2017-03-26 08:40 | ED MAR SUMMARY ---
..... Medication Administration Record [facility] [address] [place] [address] Patient: LINA PERRY Visit ID: [id number] 41y, M Weight: 97.5 kg Height/Length: 71 in BMI: 30 ALLERGIES: Sodium Penathol Start 01:49 03/25/2017 Kaylan Gonzalez R.N., Stop 03:00 03/25/2017 Kaylan Gonzalez R.N. Medication Administered: IV NS (SALINE), Dose: IV Fluids over 30 minute(s), Rate: 1000 mL/hr, Bolus: 500 mL over 30 minute(s), Dispensed: 1000 mL bag, Site: #1 left forearm. Medication Ordered: IV NS : initial bolus 500 mL (1000 mL/hr), then 500 mL/hr for X2 (NOW). Given 01:49 03/25/2017 Kaylan Gonzalez R.N. Medication Administered: BACTRIM DS [PO] (SULFAMETHOXAZOLE-TMP DS), Dose: 2 tab Tablets PO. Medication Ordered: Bactrim DS PO (Tablet 800-160 mg) 2 tabs (NOW). Start 01:55 03/25/2017 Kaylan Gonzalez R.N., Stop 02:48 03/25/2017 Kaylan Gonzalez R.N. Medication Administered: ANCEF [IVPB] (CEFAZOLIN SODIUM), Dose: 1 gm IVPB over 20 minute(s), Rate: 120 mL/hr, Dispensed: 50 mL bag, Site: #1 left forearm. Medication Ordered: Ancef IV 2 gm/100mL (NOW).
--- NOTE | 2017-03-26 08:40 | ED DISCHARGE INSTRUCTIONS ---
Patient: LINA PERRY General [facility] VisitID: [id number] [place] [address] 41y, M Registration Date/Time: 03/25/2017 Cellulitis of the left lower leg. Abrasion to the left lower leg. INSTRUCTIONS Do not work for two days. Drink plenty of fluids. Do not smoke. Seek medical help to quit smoking. No alcohol. (Return to ED for new or worsening symptoms or any concerns). Warnings: Further evaluation is necessary in order to conduct further tests. It is very important to follow up with a physician. GENERAL WARNINGS: Return or contact your physician immediately if your condition worsens or changes unexpectedly, if not improving as expected, or if other problems arise. Your Current Medications: CONTINUE TAKING THE FOLLOWING MEDICATIONS: None*. Testosterone Cypionate Intramuscular : Solution 100 mg/mL, weekly. Prescription Medications: Bactrim DS 800 mg / 160 mg: take 2 tablets orally every 12 hours for 10 days. No refill. Substitution is permissible. Keflex 500 mg: take 1 capsule orally for 1 day. No refill. Substitution is permissible. OTC Medications: Acetaminophen (available over the counter): take according to label instructions. Motrin (available over the counter): take according to label instructions. Follow-up: Follow up with your doctor in about two days. Follow-up with: [facility], , , [address] [place] [address], ; [facility], , [address] [place] [address] Follow up in about two days. Call for the next available appointment. ADDITIONAL INFORMATION Cellulitis You have an infection of the skin known as cellulitis. This usually starts with a scrape, cut, insect bite, blister or other opening in the skin which becomes infected. This is a serious condition. It must be watched closely to be sure the infection is not spreading. With antibiotic treatment, the size of the red area will gradually shrink in size until the skin returns to normal. This will take 7-10 days. The red area should never increase in size once the antibiotic medicine has been started. Occasionally, an infection will be resistant to one antibiotic and another one will have to be used. Home Care: 1) Limit the use of the affected part, since excess movement can cause the infection to spread. 2) If the infection is on your leg, walk as little as possible during the first few days of the treatment. Keep your leg elevated while sitting. This will reduce swelling. 3) Take all of the antibiotic medicine exactly as directed until it is gone. Be careful not to miss any doses, especially during the first seven days. Follow Up with your doctor or this facility as directed. Check the infected area daily for the warning signs listed below. Get Prompt Medical Attention if any of the following occur: -- Spreading area of redness -- Increasing swelling or pain -- Appearance of pus or drainage -- Fever over 100.4 F (38.0 C) oral, or over 101.4 F (38.6 C) rectal, after two days on antibiotics Abrasions Abrasions are skin scrapes. Their treatment depends on how large and deep the abrasion is. Home Care: If you were given a bandage, change it once a day. If your bandage sticks to the wound, soak it in warm water until it loosens. Wash the area with soap and water to remove all the cream/ointment. You may do this in a sink, under a tub faucet or shower. Rinse off the soap and pat dry with a clean towel. Reapply cream/ointment according to your doctor's instructions. This will prevent infection and help prevent the bandage from sticking. Cover the wound with a fresh non-stick bandage (Telfa). Repeat steps 1 to 4 daily, or as directed by your doctor. If the bandage becomes wet or dirty, change it as soon as possible. You may use acetaminophen (Tylenol) or ibuprofen (Motrin, Advil) to control pain, unless another pain medicine was prescribed. [ NOTE : If you have chronic liver or kidney disease or ever had a stomach ulcer or GI bleeding, talk with your doctor before using these medicines.] Do not use ibuprofen in children under six months of age. Follow Up with your physician or this facility as directed by our staff. Most skin wounds heal within ten days. However, an infection may occur despite proper treatment. Therefore, look for the early signs of infection listed below. Get Prompt Medical Attention if any of the following occur: Increasing pain in the wound Increasing redness or swelling Pus coming from the wound Fever of 100.4F (38C) or higher, or as directed by your healthcare provider How To Quit Smoking Smoking is one of the hardest habits to break. About half of all those who have ever smoked have been able to quit, and most of those (about 70%) who still smoke want to quit. Here are some of the best ways to stop smoking. Keep Trying: It takes most smokers about 8 tries before they are finally able to fully quit. So, the more often you try and fail, the better your chance of quitting the next time! So, don't give up! Go Cold [place]: Most ex-smokers quit cold turkey. Trying to cut back gradually doesn't seem to work as well, perhaps because it continues the smoking habit. Also, it is possible to fool yourself by inhaling more while smoking fewer cigarettes. This results in the same amount of nicotine in your body! Get Support: Support programs can make an important difference, especially for the heavy smoker. These groups offer lectures, methods to change your behavior and peer support. Call the free national Quitline for more information. 547-WHFY-KAR (732-489-8851). Low-cost or free programs are offered by many hospitals, local chapters of the [place] [employer] (301-244-0241) and the [place] [employer] (613-343-0454). Support at home is important too. Non-smokers can help by offering praise and encouragement. If the smoker fails to quit, encourage them to try again! Wqcn-Fow-Sfbwyyz Medicines: For those who can't quit on their own, Nicotine Replacement Therapy (NRT) may make quitting much easier. Certain aids such as the nicotine patch, gum and lozenge are available without a prescription. However, it is best to use these under the guidance of your doctor. The skin patch provides a steady supply of nicotine to the body. Nicotine gum and lozenge gives temporary bursts of low levels of nicotine. Both methods take the edge off the craving for cigarettes. WARNING: If you feel symptoms of nicotine overdose, such as nausea, vomiting, dizziness, weakness, or fast heartbeat, stop using these and see your doctor. Prescription Medicines: After evaluating your smoking patterns and prior attempts at quitting, your doctor may offer a prescription medicine such as bupropion (Zyban, Wellbutrin), varenicline (Chantix, Champix), a niocotine inhaler or nasal spray. Each has its unique advantage and side effects which your doctor can review with you. Health Benefits Of Quitting: The benefits of quitting start right away and keep improving the longer you go without smokin minutes: blood pressure and pulse return to normal 8 hours: oxygen levels return to normal 2 days: ability to smell and taste begins to improve as damaged nerves start to regrow 2-3 weeks: circulation and lung function improves 1-9 months: decreased cough, congestion and shortness of breath; less tired 1 year: risk of heart attack decreases by half 5 years: risk of lung cancer decreases by half; risk of stroke becomes the same as a non-smoker For information about how to quit smoking, visit the following links: National Cancer [employer] , Clearing the Air, Quit Smoking Today - an online booklet. http://www.smokefree.gov/pubs/clearing_the_air.pdf Smokefree.gov http://smokefree.gov/ QuitNet http://www.quitnet.com/ Sulfamethoxazole, Trimethoprim Oral tablet What is this medicine? SULFAMETHOXAZOLE; TRIMETHOPRIM or SMX-TMP (suhl fuh meth OK steffanie zohl; trye METH oh prim) is a combination of a sulfonamide antibiotic and a second antibiotic, trimethoprim. It is used to treat or prevent certain kinds of bacterial infections. It will not work for colds, flu, or other viral infections. How should I use this medicine? Take this medicine by mouth with a full glass of water. Follow the directions on the prescription label. Take your medicine at regular intervals. Do not take it more often than directed. Do not skip doses or stop your medicine early. Talk to your director of event marketing regarding the use of this medicine in children. Special care may be needed. This medicine has been used in children as young as 2 months of age. What side effects may I notice from receiving this medicine? Side effects that you should report to your doctor or health cardiac care unit nurse as soon as possible: allergic reactions like skin rash or hives, swelling of the face, lips, or tongue breathing problems fever or chills, sore throat irregular heartbeat, chest pain joint or muscle pain pain or difficulty passing urine red pinpoint spots on skin redness, blistering, peeling or loosening of the skin, including inside the mouth unusual bleeding or bruising unusually weak or tired yellowing of the eyes or skin Side effects that usually do not require medical attention (report to your doctor or health cardiac care unit nurse if they continue or are bothersome): diarrhea dizziness headache loss of appetite nausea, vomiting nervousness What may interact with this medicine? Do not take this medicine with any of the following medications: aminobenzoate potassium dofetilide metronidazole This medicine may also interact with the following medications: FLAVIO inhibitors like benazepril, enalapril, lisinopril, and ramipril cyclosporine digoxin diuretics indomethacin medicines for diabetes methenamine methotrexate phenytoin potassium supplements pyrimethamine sulfinpyrazone tricyclic antidepressants warfarin What if I miss a dose? If you miss a dose, take it as soon as you can. If it is almost time for your next dose, take only that dose. Do not take double or extra doses. Where should I keep my medicine? Keep out of the reach of children. Store at room temperature between 20 to 25 degrees C (68 to 77 degrees F). Protect from light. Throw away any unused medicine after the expiration date. What should I tell my health care provider before I take this medicine? They need to know if you have any of these conditions: anemia asthma being treated with anticonvulsants if you frequently drink alcohol containing drinks kidney disease liver disease low level of folic acid or [id number] dehydrogenase poor nutrition or malabsorption porphyria severe allergies thyroid disorder an unusual or allergic reaction to sulfamethoxazole, trimethoprim, sulfa drugs, other medicines, foods, dyes, or preservatives or trying to get breast-feeding What should I watch for while using this medicine? Tell your doctor or health cardiac care unit nurse if your symptoms do not improve. Drink several glasses of water a day to reduce the risk of kidney problems. Do not treat diarrhea with over the counter products. Contact your doctor if you have diarrhea that lasts more than 2 days or if it is severe and watery. This medicine can make you more sensitive to the sun. Keep out of the sun. If you cannot avoid being in the sun, wear protective clothing and use a sunscreen. Do not use sun lamps or tanning beds/booths. Cephalexin Monohydrate Oral tablet What is this medicine? CEPHALEXIN (sef a SHRAVAN in) is a cephalosporin antibiotic. It is used to treat certain kinds of bacterial infections It will not work for colds, flu, or other viral infections. How should I use this medicine? Take this medicine by mouth with a full glass of water. Follow the directions on the prescription label. This medicine can be taken with or without food. Take your medicine at regular intervals. Do not take your medicine more often than directed. Take all of your medicine as directed even if you think you are better. Do not skip doses or stop your medicine early. Talk to your director of event marketing regarding the use of this medicine in children. While this drug may be prescribed for selected conditions, precautions do apply. What side effects may I notice from receiving this medicine? Side effects that you should report to your doctor or health cardiac care unit nurse as soon as possible: allergic reactions like skin rash, itching or hives, swelling of the face, lips, or tongue breathing problems pain or trouble passing urine redness, blistering, peeling or loosening of the skin, including inside the mouth severe or watery diarrhea unusually weak or tired yellowing of the eyes, skin Side effects that usually do not require medical attention (report to your doctor or health cardiac care unit nurse if they continue or are bothersome): gas or heartburn genital or anal irritation headache joint or muscle pain nausea, vomiting What may interact with this medicine? probenecid some other antibiotics What if I miss a dose? If you miss a dose, take it as soon as you can. If it is almost time for your next dose, take only that dose. Do not take double or extra doses. There should be at least 4 to 6 hours between doses. Where should I keep my medicine? Keep out of the reach of children. Store at room temperature between 59 and 86 degrees F (15 and 30 degrees C). Throw away any unused medicine after the expiration date. What should I tell my health care provider before I take this medicine? They need to know if you have any of these conditions: kidney disease stomach or intestine problems, especially colitis an unusual or allergic reaction to cephalexin, other cephalosporins, penicillins, other antibiotics, medicines, foods, dyes or preservatives or trying to get breast-feeding What should I watch for while using this medicine? Tell your doctor or health cardiac care unit nurse if your symptoms do not begin to improve in a few days. Do not treat diarrhea with over the counter products. Contact your doctor if you have diarrhea that lasts more than 2 days or if it is severe and watery. If you have diabetes, you may get a false-positive result for sugar in your urine. Check with your doctor or health cardiac care unit nurse. Acetaminophen Oral tablet What is this medicine? ACETAMINOPHEN (a set a PASHA daniel fen) is a pain reliever. It is used to treat mild pain and fever. How should I use this medicine? Take this medicine by mouth with a glass of water. Follow the directions on the package or prescription label. Take your medicine at regular intervals. Do not take your medicine more often than directed. Talk to your director of event marketing regarding the use of this medicine in children. While this drug may be prescribed for children as young as 6 years of age for selected conditions, precautions do apply. What side effects may I notice from receiving this medicine? Side effects that you should report to your doctor or health cardiac care unit nurse as soon as possible: allergic reactions like skin rash, itching or hives, swelling of the face, lips, or tongue breathing problems fever or sore throat redness, blistering, peeling or loosening of the skin, including inside the mouth trouble passing urine or change in the amount of urine unusual bleeding or bruising unusually weak or tired yellowing of the eyes or skin Side effects that usually do not require medical attention (report to your doctor or health cardiac care unit nurse if they continue or are bothersome): headache nausea, stomach upset What may interact with this medicine? alcohol imatinib isoniazid other medicines with acetaminophen What if I miss a dose? If you miss a dose, take it as soon as you can. If it is almost time for your next dose, take only that dose. Do not take double or extra doses. Where should I keep my medicine? Keep out of reach of children. Store at room temperature between 20 and 25 degrees C (68 and 77 degrees F). Protect from moisture and heat. Throw away any unused medicine after the expiration date. What should I tell my health care provider before I take this medicine? They need to know if you have any of these conditions: if you frequently drink alcohol containing drinks liver disease an unusual or allergic reaction to acetaminophen, other medicines, foods, dyes or preservatives or trying to get breast-feeding What should I watch for while using this medicine? Tell your doctor or health cardiac care unit nurse if the pain lasts more than 10 days (5 days for children), if it gets worse, or if there is a new or different kind of pain. Also, check with your doctor if a fever lasts for more than 3 days. Do not take other medicines that contain acetaminophen with this medicine. Always read labels carefully. If you have questions, ask your doctor or pharmacist. If you take too much acetaminophen get medical help right away. Too much acetaminophen can be very dangerous and cause liver damage. Even if you do not have symptoms, it is important to get help right away. Ibuprofen Oral tablet What is this medicine? IBUPROFEN (eye BYOO proe fen) is a non-steroidal anti-inflammatory drug (NSAID). It is used for dental pain, fever, headaches or migraines, osteoarthritis, rheumatoid arthritis, or painful monthly periods. It can also relieve minor aches and pains caused by a cold, flu, or sore throat. How should I use this medicine? Take this medicine by mouth with a glass of water. Follow the directions on the prescription label. Take this medicine with food if your stomach gets upset. Try to not lie down for at least 10 minutes after you take the medicine. Take your medicine at regular intervals. Do not take your medicine more often than directed. A special MedGuide will be given to you by the pharmacist with each prescription and refill. Be sure to read this information carefully each time. Talk to your director of event marketing regarding the use of this medicine in children. Special care may be needed. What side effects may I notice from receiving this medicine? Side effects that you should report to your doctor or health cardiac care unit nurse as soon as possible: allergic reactions like skin rash, itching or hives, swelling of the face, lips, or tongue black or bloody stools, blood in the urine or in vomit breathing problems changes in vision chest pain general ill feeling or flu-like symptoms nausea or vomiting redness, blistering, peeling or loosening of the skin, including inside the mouth slurred speech or weakness on one side of the body stomach pain unexplained weight gain or swelling unusually weak or tired yellowing of eyes or skin Side effects that usually do not require medical attention (report to your doctor or health cardiac care unit nurse if they continue or are bothersome): constipation or diarrhea dizziness gas or heartburn stomach upset What may interact with this medicine? Do not take this medicine with any of the following medications: cidofovir ketorolac methotrexate pemetrexed This medicine may also interact with the following medications: alcohol aspirin diuretics lithium other drugs for inflammation like prednisone warfarin What if I miss a dose? If you miss a dose, take it as soon as you can. If it is almost time for your next dose, take only that dose. Do not take double or extra doses. Where should I keep my medicine? Keep out of the reach of children. Store at room temperature between 15 and 30 degrees C (59 and 86 degrees F). Keep container tightly closed. Throw away any unused medicine after the expiration date. What should I tell my health care provider before I take this medicine? They need to know if you have any of these conditions: asthma cigarette smoker drink more than 3 alcohol containing drinks a day heart disease or circulation problems such as heart failure or leg edema (fluid retention) high blood pressure kidney disease liver disease stomach bleeding or ulcers an unusual or allergic reaction to ibuprofen, aspirin, other NSAIDS, other medicines, foods, dyes, or preservatives or trying to get breast-feeding What should I watch for while using this medicine? Tell your doctor or healthcare professional if your symptoms do not start to get better or if they get worse. This medicine does not prevent heart attack or stroke. In fact, this medicine may increase the chance of a heart attack or stroke. The chance may increase with longer use of this medicine and in people who have heart disease. If you take aspirin to prevent heart attack or stroke, talk with your doctor or health cardiac care unit nurse. Do not take other medicines that contain aspirin, ibuprofen, or naproxen with this medicine. Side effects such as stomach upset, nausea, or ulcers may be more likely to occur. Many medicines available without a prescription should not be taken with this medicine. This medicine can cause ulcers and bleeding in the stomach and intestines at any time during treatment. Ulcers and bleeding can happen without warning symptoms and can cause . To reduce your risk, do not smoke cigarettes or drink alcohol while you are taking this medicine. You may get drowsy or dizzy. Do not drive, use machinery, or do anything that needs mental alertness until you know how this medicine affects you. Do not stand or sit up quickly, especially if you are an older patient. This reduces the risk of dizzy or fainting spells. This medicine can cause you to bleed more easily. Try to avoid damage to your teeth and gums when you brush or floss your teeth. You have been given the following additional information: Cellulitis Abrasion Smoking Cessation Sulfamethoxazole, Trimethoprim Oral tablet Cephalexin Monohydrate Oral tablet Acetaminophen Oral tablet Ibuprofen Oral tablet Do not work for two days. (Electronically signed by Ezra Wolfe DO 03/26/2017 8:40)
--- NOTE | 2017-03-26 08:40 | ED MAR SUMMARY ---
..... Medication Administration Record [facility] [address] [place] [address] Patient: LINA PERRY Visit ID: [id number] 41y, M Weight: 97.5 kg Height/Length: 71 in BMI: 30 ALLERGIES: Sodium Penathol Start 01:49 03/25/2017 Kaylan Gonzalez R.N., Stop 03:00 03/25/2017 Kaylan Gonzalez R.N. Medication Administered: IV NS (SALINE), Dose: IV Fluids over 30 minute(s), Rate: 1000 mL/hr, Bolus: 500 mL over 30 minute(s), Dispensed: 1000 mL bag, Site: #1 left forearm. Medication Ordered: IV NS : initial bolus 500 mL (1000 mL/hr), then 500 mL/hr for X2 (NOW). Given 01:49 03/25/2017 Kaylan Gonzalez R.N. Medication Administered: BACTRIM DS [PO] (SULFAMETHOXAZOLE-TMP DS), Dose: 2 tab Tablets PO. Medication Ordered: Bactrim DS PO (Tablet 800-160 mg) 2 tabs (NOW). Start 01:55 03/25/2017 Kaylan Gonzalez R.N., Stop 02:48 03/25/2017 Kaylan Gonzalez R.N. Medication Administered: ANCEF [IVPB] (CEFAZOLIN SODIUM), Dose: 1 gm IVPB over 20 minute(s), Rate: 120 mL/hr, Dispensed: 50 mL bag, Site: #1 left forearm. Medication Ordered: Ancef IV 2 gm/100mL (NOW).
--- NOTE | 2017-03-26 08:40 | ED MED RECONCILIATION SUMMARY ---
Patient: LINA PERRY Medication Reconciliation Report [facility] VisitID: [id number] [address] [place] [address] 41y, M Registration Date/Time: 03/25/2017 Weight: 97.5 kg Height/Length: 71 in. BMI: 30.0 ALLERGIES: Sodium Penathol The patient's Home Medications are listed below: CONTINUE TAKING THE FOLLOWING MEDICATIONS: Testosterone Cypionate Intramuscular (100 mg/mL), weekly The source(s) of the original Home Medication information: Not obtained. The following Medications were given to the patient in the Emergency Department: IV NS IV Fluids bolus 500 mL over 30 minute(s), then 1000 mL/hr, administered: 03/25/2017 1:49:00 AM Bactrim DS [PO] PO 2 tab, administered: 03/25/2017 1:49:00 AM Ancef [IVPB] IVPB bolus 0, then 1 gm 120 mL/hr, administered: 03/25/2017 1:55:00 AM The following Medications were prescribed to the patient: Acetaminophen (available over the counter): take according to label instructions. -- Ezra Wolfe DO Motrin (available over the counter): take according to label instructions. -- Ezra Wolfe DO Bactrim DS 800 mg / 160 mg: take 2 tablets orally every 12 hours for 10 days. No refill. Substitution is permissible. -- Ezra Wolfe DO Keflex 500 mg: take 1 capsule orally for 1 day. No refill. Substitution is permissible. -- Ezra Wolfe DO
--- NOTE | 2017-03-26 08:40 | ED MED RECONCILIATION SUMMARY ---
Patient: LINA PERRY Medication Reconciliation Report [facility] VisitID: [id number] [address] [place] [address] 41y, M Registration Date/Time: 03/25/2017 Weight: 97.5 kg Height/Length: 71 in. BMI: 30.0 ALLERGIES: Sodium Penathol The patient's Home Medications are listed below: CONTINUE TAKING THE FOLLOWING MEDICATIONS: Testosterone Cypionate Intramuscular (100 mg/mL), weekly The source(s) of the original Home Medication information: Not obtained. The following Medications were given to the patient in the Emergency Department: IV NS IV Fluids bolus 500 mL over 30 minute(s), then 1000 mL/hr, administered: 03/25/2017 1:49:00 AM Bactrim DS [PO] PO 2 tab, administered: 03/25/2017 1:49:00 AM Ancef [IVPB] IVPB bolus 0, then 1 gm 120 mL/hr, administered: 03/25/2017 1:55:00 AM The following Medications were prescribed to the patient: Acetaminophen (available over the counter): take according to label instructions. -- Ezra Wolfe DO Motrin (available over the counter): take according to label instructions. -- Ezra Wolfe DO Bactrim DS 800 mg / 160 mg: take 2 tablets orally every 12 hours for 10 days. No refill. Substitution is permissible. -- Ezra Wolfe DO Keflex 500 mg: take 1 capsule orally for 1 day. No refill. Substitution is permissible. -- Ezra Wolfe DO
== END 2017-03-25 03:02 | disposition home or self-care (01) ==
LOC: ED SRH 01:15
DX: S80.812A Abrasion, left lower leg, initial encounter (principal); L03.116 Cellulitis of left lower limb; W22.8XXA Striking against or struck by other objects, initial encounter; Y92.009 Unspecified place in unspecified non-institutional (private) residence as the place of occurrence of the external cause; Y99.8 Other external cause status; F17.210 Nicotine dependence, cigarettes, uncomplicated; F19.10 Other psychoactive substance abuse, uncomplicated